=== PATIENT | female | born 1980 | race Caucasian/White ===

== ENCOUNTER 2016-10-22 19:17 | Emergency (ER) | payer OTHER ==
--- NOTE | 2016-10-22 20:13 | DIAGNOSTIC IMAGING REPORT ---
PROCEDURE: XR FOOT 3 VIEWS - LEFT INDICATION: FOOT INJURY TECHNIQUE: Three views. COMPARISON: None. FINDINGS: Comminuted calcaneal fracture with mild displacement of fragments and pes planus. Cutaneous debris overlies the fourth and fifth toes. IMPRESSION: 1. Comminuted left calcaneal fracture.
--- NOTE | 2016-10-22 20:42 | ED ORDER SUMMARY ---
..... Patient: RUTH VOGEL OrderSheet [facility] VisitID: [id number] [place] [address] 36y, F Registration Date/Time: 10/22/2016 ORDER SHEET Weight: 54.4 kg (stated) Allergies: None GENERAL ORDERS: Foot 3V Left Urgent (19:40 10/22/2016 Jessica Melendez) (Ack 19:45 Aissatou ER Title Vehicle Service Attendant) (19:53 Aissatou ER Title Vehicle Service Attendant) CBC w Diff Urgent (20:35 10/22/2016 Jessica Melendez) (Ack 20:39 IJurca ER Tech1) (Collected 20:44 RMarsden R.N.) (20:48 JQuivey R.N.) CMP Urgent (20:35 10/22/2016 Jessica Melendez) (Ack 20:39 NOEMIurca ER Tech1) (Collected 20:44 RMarsden R.N.) (20:48 JQuivey R.N.) UA-Culture if indicated Urgent (20:35 10/22/2016 Jessica Melendez) (Ack 20:39 NOEMIurca ER Tech1) (Collected 20:44 RMarsden R.N.) (20:48 JQuivey R.N.) Urine Urgent (20:35 10/22/2016 Jessica Melendez) (Ack 20:39 NOEMIurca ER Tech1) (Collected 20:44 RMarsden R.N.) (20:48 JQuivey R.N.) Splint (LE) (Left) (Long Leg Posterior) (Fiberglass) (20:41 10/22/2016 Jessica Melendez) (Ack 20:48 JQuivey R.N.) (21:07 RMarsden R.N.) MEDICATION ORDERS: Toradol IM 60 mg (NOW) (19:40 10/22/2016 Jessica Melendez) (Ack 19:48 RMarsden R.N.) (20:01 RMarsden R.N.) Adacel IM 0.5 mL (NOW) (20:02 10/22/2016 RMarsden R.N. per protocol) (20:03 RMarsden R.N.) Nicoderm Topical 21 mg (NOW) (20:58 10/22/2016 Jessica Melendez) (21:00 Cristian R.N.) IV FLUIDS: IV NS : initial bolus none -, then 1000 mL/hr for X1 (NOW) (20:34 10/22/2016 Jessica Melendez) (20:44 Cristian R.N.) Dilaudid IV 1 mg (HIGH ALERT MEDICATION, NOW) (20:57 10/22/2016 Jessica Melendez) (21:04 Cristian R.N.) ORDER SHEET NOTES: [Electronically signed by Hans Pete Dr. (21:27 10/22/2016)] [Electronically signed by Candy Celestin R.N. (05:48 10/23/2016)] [Electronically locked/signed by Candy Celestin R.N. (05:48 10/23/2016)]
--- NOTE | 2016-10-22 20:42 | ED NURSING NOTES ---
Clinical Report - Nurses [facility] [address] [place] [address] 10/22/2016 19:21 Patient: RUTH VOGEL TRIAGE Triage time 19:26. Acuity: LEVEL 4. Chief Complaint: INJURY TO LEFT ANKLE. 19:47 10/22/16. Alert. No acute distress. SEPSIS SCREEN: Sepsis Screen. Negative (no infection suspected/documented). HAKAN COMA SCORE: Hakan Coma Scale: 15- eyes open spontaneously (4); best verbal response- oriented x 4 (5); best motor response- obeys commands (6). --19:47 Candy Celestin R.N. 19:39 10/22/16. BP: 115/64. HR: 89. RR: 14. O2 saturation: 97% on room air. Temp: 98.3 F. Pain level now: 02/07. --19:47 Candy Celestin R.N. Weight: 54.4 kg stated. Height/Length: 65 inches Per Patient. BMI: 20. --19:47 Candy Celestin R.N. Medications None. --19:44 Candy Celestin R.N. Allergies None. --19:44 Candy Celestin R.N. History Arrived by private vehicle. Historian: patient. Primary physician ([facility]). This occurred just prior to arrival. [place] ("[place] the river"). Mechanism of injury: fell while jumping and landed on the ground (off a fence). ( Patient states "I was at the river having a few drinks when I fell off the fence and hurt my ankle."). She has had trouble walking. Treatment HVAC INSTALLATION TECHNICIAN: Splint and took Tylenol. PAST MEDICAL HX: Tetanus status: unknown. Immunizations: up-to-date. Denies current . SOCIAL HX: Heavy tobacco smoker- less than 1 pack per day. Occasional alcohol use. No drug use. NUTRITIONAL RISK ASSESSMENT: The nutritional risk assessment revealed no deficiencies. FUNCTIONAL ASSESSMENT: Functional assessment: no impairments noted. LEARNING NEEDS ASSESSMENT: The learning needs assessment revealed no barriers. FALL RISK ASSESSMENT: Fall risk assessment completed. Risk factors identified include severe pain and patient history of fall. Fall interventions initiated. Side rails up x1. Brakes on Bed in low position. Online Journalist at bedside. Call light in reach of patient. Instructed not to get up without assistance. SKIN INTEGRITY ASSESSMENT: Skin integrity risk assessment completed. No skin integrity risk identified. --19:47 Candy Celestin R.N. PROBLEMS: no known problems. ADDITIONAL SURGERIES: Tubal Ligation. --19:45 Candy Celestin R.N. Interventions ID band on patient. To treatment room. --19:47 Candy Celestin R.N. PHYSICAL ASSESSMENT 19:48 10/22/16. To room via wheelchair. GENERAL / NEURO / PSYCH: Oriented X 4. Alert. Appears in pain. EXTREMITIES: Extremity pulses are within normal limits. Pain with weight bearing. She was unable to bear weight. Left ankle:, posterior ankle: and lateral ankle. SKIN: Skin is warm and dry. ( Patient has skin rash. She states she thinks she has an allergy). --19:48 Candy Celestin R.N. NURSING PROGRESS NOTES 19:48 10/22/16. Two patient identifiers checked. Call light placed in reach. Side rails up x 1. Bed placed in lowest position. Brakes of bed on. --19:48 Candy Celestin R.N. 19:54 Portable x-ray taken. --19:54 Brenton Caputo R.N. 19:53 10/22/2016 Adacel IM 0.5 mL given. (Lot#: [id number], expiration date: 10/04/2018, Certified Nurse Midwife: sanofi pasteur). Given in the right deltoid. Allergies verified and confirmed 5 rights. Vaccine information statement provided to the patient. --20:03 Candy Celestin R.N. 19:56 10/22/2016 Toradol (Ketorolac Tromethamine) IM 60 mg given. Given in the left anterior lateral thigh. Allergies verified and confirmed 5 rights. --20:01 Candy Celestin R.N. 20:34 10/22/2016 Site #1 started via IV in the right antecubital space with an 20g angiocath; one attempt. Blood drawn: rainbow set. Labeled in the presence of the patient and sent to the lab. Saline lock flushed with 5 mL saline. --20:44 Candy Celestin R.N. 20:39 10/22/2016 Started bag #1 1000 mL IV Fluids IV NS (Saline); bolus of 1000 mL over 1 hour(s) via site #1 via IV pump. Allergies verified and confirmed 5 rights. IV patency established. IV site checked: no pain, redness, or swelling. IV flushed thoroughly pre- and post-medication administration. Completed per protocol. --20:44 Candy Celestin R.N. Short leg posterior fiberglass and velcro lower extremity splint applied to left leg by tech. Distal pulses intact, sensation intact and motor within normal limits. --20:56 Kee Whitney, ER Tech1 21:00 10/22/2016 NICODERM Topical Patch/Pad 21 mg. Applied to the right upper arm. Allergies verified and confirmed 5 rights. --21:00 Candy Celestin R.N. 21:04 10/22/2016 Dilaudid (HYDROmorphone HCl PF) IVP 1 mg given over 2 minute(s) via site #1. Allergies verified, confirmed 5 rights and sedative warning given to the patient and patient's crime scene technician. IV patency established. IV site checked: no pain, redness, or swelling. IV flushed thoroughly pre- and post-medication administration. IVP given by RN. --21:04 Candy Celestin R.N. DISPOSITION / DISCHARGE 21:33 10/22/16. Transferred to [facility]. Summary of care provided to transport team and transfer facility via fax. Transported via stretcher by transport team with monitor and IV. Report was given to a nurse in person. Report included patient's care, treatment, medications, reviewed medication reconcilliation, and condition (including any recent changes or anticipated changes). All questions were answered. Report was acknowledged and care was transferred. Patient's personal items include, wallet, jacob bandage; items were placed in belongings bag and transported with the patient. Collection of belongings was witnessed by 1 nurse. --21:33 Candy Celestin R.N. 21:31 06/24/17. BP: 127/74. HR: 84. RR: 15. O2 saturation: 100%. Temp: deferred. Pain level now: 11/07. --21:33 Candy Celestin R.N. Locked/Released at 10/23/2016 5:48 by Candy Celestin R.N.
--- NOTE | 2016-10-22 20:42 | ED CLINICAL REPORT ---
Clinical Report - Physicians/Mid Levels [facility] [address] [place] [address] 10/22/2016 19:21 Patient: RUTH VOGEL Time Seen: 19:28; initial patient contact. Arrived- By private vehicle. Historian- patient. HISTORY OF PRESENT ILLNESS Chief Complaint: Injury to left foot. The injury happened just prior to arrival. [place]urred [place]. Fell 4-5 feet while climbing and landed on the ground. Patient is experiencing moderate pain. Patient denies injury to the head or neck. REVIEW OF SYSTEMS The patient complains of pain on weight bearing. She has had swelling. No tingling, skin laceration, back pain or neck pain. All systems otherwise negative, except as recorded above. PAST HISTORY Negative. ( Tubal Ligation.). Problems: no known problems. Medications: None. Allergies: None. SOCIAL HISTORY Current every day smoker. Occasional alcohol use. No drug use. ADDITIONAL NOTES The nursing notes have been reviewed. PHYSICAL EXAM Vital Signs: 10/22/2016 19:39 BP: 115/64. HR: 89. RR: 14. O2 saturation: 97%. Temp: 98.3 F. Pain level now: 10/10. Have been reviewed as normal. Appearance: Alert. Oriented X3. Appears to be in pain. Skin: Skin warm and dry. Normal skin color. Extremities: Left knee. No tenderness or swelling. No limitation in ROM. Left leg. Left ankle. Neurovascular intact distally. No joint effusion. No erythema, tenderness or swelling. No limitation in ROM. Left foot: mild erythema and moderate tenderness and swelling of the heel. Limited weight bearing secondary to pain. Neurovascular intact distally. No ecchymosis or puncture wound. Lower extremity exam otherwise negative. Extremities otherwise negative. Neuro, Vascular and Tendons: Vascular status intact. Sensation intact. Motor intact. Gait: Gait not tested due to pain. Neuro: Oriented X 3. No motor deficit. No sensory deficit. LABS, X-RAYS, AND EKG Lt Foot X-ray: Left foot fracture: comminuted fracture of the calcaneus. Views: 3 view foot series. Technique: good. The X-rays were independently viewed by me and interpreted contemporaneously by me. Prior films were not available for comparison. Laboratory Tests: UA-Culture if indicated: (WILLEM: 10/22/2016 20:43) ( [employer] 10/22/2016 21:13) Final results Test Result Flag Units (Reference) URINE COLOR YELLOW URINE APPEARANCE CLEAR URINE GLUCOSE NEGATIVE (NEGATIVE) URINE BILIRUBIN NEGATIVE (NEGATIVE) URINE KETONE NEGATIVE (NEGATIVE) URINE SPECIFIC GRAVITY 1.025 (1.010-1.030) URINE PH 5.5 (5.0-8.0) URINE PROTEIN 1+ (NEGATIVE) URINE UROBILINOGEN 0.2 EU/dL (0.2-1.0) URINE NITRITE NEGATIVE (NEGATIVE) URINE BLOOD 1+ (NEGATIVE) URINE LEUK ESTERASE NEGATIVE (NEGATIVE) URINE RBC 3-5 rbc/hpf (0-1) URINE WBC 0-1 wbc/hpf (0-1) URINE EPITHELIAL CELLS 0-1 EPI/hpf (0-5) URINE BACTERIA FEW (1+) (NONE SEEN) URINE COMMENT CULT NOT INDICATED FEW HYALINE CASTSURINE CULTURES ARE SET-UP BASED ON THE FOLLOWING CRITERIA:POSITIVE NITRITEPOSITIVE LEUKOCYTE ESTERASEGREATER THAN 10 WHITE BLOOD CELLSMODERATE (2+) OR GREATER BACTERIA Urine: (WILLEM: 10/22/2016 20:43) ( [facility] 10/22/2016 21:00) Final results Test Result Flag Units (Reference) URINE NEGATIVE CBC w Diff: (WILLEM: 10/22/2016 20:35) ( [employer] 10/22/2016 21:00) Final results Test Result Flag Units (Reference) WHITE BLOOD COUNT 13.7 H K/uL (4.5-11.5) RED BLOOD COUNT 4.30 M/uL (4.00-5.20) HEMOGLOBIN 13.5 gm/dL (12.0-16.0) HEMATOCRIT 41.0 % (36.0-46.0) MEAN CELL VOLUME 95 fL (80-100) MEAN CORPUSCULAR HGB 31 pg (26-34) MEAN CORPUSCULAR HGB CONC 33 g/dL (31-37) RED CELL DISTRIBUTION WIDTH 14.2 % (11.6-14.8) PLATELET COUNT 218 K/uL (150-400) NEUTROPHIL % 80.9 H % (50-75) LYMPH % 14.5 L % (25-40) MONO % 3.8 % (3-14) EOSINOPHIL % 0.5 % (0-4) BASOPHIL % 0.3 % (0-2) CMP: (WILLEM: 10/22/2016 20:35) ( MsgRcvd 10/22/2016 21:19) Final results Test Result Flag Units (Reference) GLUCOSE 102 mg/dL (70-110) BUN 13 mg/dL (7-18) CREATININE 0.8 mg/dL (0.6-1.3) Estimated GFR >60 mL/min Estimated GFR- >60 mL/min Note: Persistent reduction over 3 months in eGFR<60 mL/min/1.73 m2 defines CKD. Patients with eGFR values>=60 mL/min/1.73 m2 may also have CKD if evidence ofpersistent proteinuria. Additional information may be foundat www.kidney.org. SODIUM 142 mmol/L (136-145) POTASSIUM 4.4 mmol/L (3.5-5.1) CHLORIDE 105 mmol/L (98-107) CARBON DIOXIDE 24 mmol/L (21-32) CALCIUM 8.8 mg/dL (8.5-10.1) TOTAL PROTEIN 7.8 g/dL (6.4-8.2) ALBUMIN 4.4 g/dL (3.3-5.0) BILIRUBIN, TOTAL 0.3 mg/dL (0.0-1.0) ALKALINE PHOSPHATASE 63 U/L (46-116) AST (SGOT) 27 U/L (15-37) ALT (SGPT) 29 U/L (12-78) . PROGRESS AND PROCEDURES Course of Care: 21:27 10/22/16. Re-evaluated foot for signs of compartment syndrome, none evident. Discussed case with health care provider (call returned 20:41 Dr. Loera [facility] accepts transfer). Reviewed test results and need for additional work-up. Health care provider will see patient in ED. Disposition: Benefits, risks and alternatives to transfer explained to patient and family. Transferred to [facility]. CLINICAL IMPRESSION Closed comminuted fracture of the body of the left calcaneus. INSTRUCTIONS Follow-up: Screening today revealed the patient's blood pressure to be in the normal range. (Electronically signed by Hans Pete Dr. 10/22/2016 21:28)
--- NOTE | 2016-10-22 20:42 | ED NURSING NOTES ---
Clinical Report - Nurses [facility] [address] [place] [address] 10/22/2016 19:21 Patient: RUTH VOGEL TRIAGE Triage time 19:26. Acuity: LEVEL 4. Chief Complaint: INJURY TO LEFT ANKLE. 19:47 10/22/16. Alert. No acute distress. SEPSIS SCREEN: Sepsis Screen. Negative (no infection suspected/documented). HAKAN COMA SCORE: Hakan Coma Scale: 15- eyes open spontaneously (4); best verbal response- oriented x 4 (5); best motor response- obeys commands (6). --19:47 Candy Celestin R.N. 19:39 10/22/16. BP: 115/64. HR: 89. RR: 14. O2 saturation: 97% on room air. Temp: 98.3 F. Pain level now: 02/07. --19:47 Candy Celestin R.N. Weight: 54.4 kg stated. Height/Length: 65 inches Per Patient. BMI: 20. --19:47 Candy Celestin R.N. Medications None. --19:44 Candy Celestin R.N. Allergies None. --19:44 Candy Celestin R.N. History Arrived by private vehicle. Historian: patient. Primary physician ([facility]). This occurred just prior to arrival. [place] ("[place]"). Mechanism of injury: fell while jumping and landed on the ground (off a fence). ( Patient states "[place] the river [place] when I fell off the fence and hurt my ankle."). She has had trouble walking. Treatment SANDBLAST OPERATOR: Splint and took Tylenol. PAST MEDICAL HX: Tetanus status: unknown. Immunizations: up-to-date. Denies current . SOCIAL HX: Heavy tobacco smoker- less than 1 pack per day. Occasional alcohol use. No drug use. NUTRITIONAL RISK ASSESSMENT: The nutritional risk assessment revealed no deficiencies. FUNCTIONAL ASSESSMENT: Functional assessment: no impairments noted. LEARNING NEEDS ASSESSMENT: The learning needs assessment revealed no barriers. FALL RISK ASSESSMENT: Fall risk assessment completed. Risk factors identified include severe pain and patient history of fall. Fall interventions initiated. Side rails up x1. Brakes on Bed in low position. Assistant Professor Of Criminal Justice at bedside. Call light in reach of patient. Instructed not to get up without assistance. SKIN INTEGRITY ASSESSMENT: Skin integrity risk assessment completed. No skin integrity risk identified. --19:47 Candy Celestin R.N. PROBLEMS: no known problems. ADDITIONAL SURGERIES: Tubal Ligation. --19:45 Candy Celestin R.N. Interventions ID band on patient. To treatment room. --19:47 Candy Celestin R.N. PHYSICAL ASSESSMENT 19:48 10/22/16. To room via wheelchair. GENERAL / NEURO / PSYCH: Oriented X 4. Alert. Appears in pain. EXTREMITIES: Extremity pulses are within normal limits. Pain with weight bearing. She was unable to bear weight. Left ankle:, posterior ankle: and lateral ankle. SKIN: Skin is warm and dry. ( Patient has skin rash. She states she thinks she has an allergy). --19:48 Candy Celestin R.N. NURSING PROGRESS NOTES 19:48 10/22/16. Two patient identifiers checked. Call light placed in reach. Side rails up x 1. Bed placed in lowest position. Brakes of bed on. --19:48 Candy Celestin R.N. 19:54 Portable x-ray taken. --19:54 Brenton Caputo R.N. 19:53 10/22/2016 Adacel IM 0.5 mL given. (Lot#: [id number], expiration date: 10/04/2018, Jewel Sawyer: sanofi pasteur). Given in the right deltoid. Allergies verified and confirmed 5 rights. Vaccine information statement provided to the patient. --20:03 Candy Celestin R.N. 19:56 10/22/2016 Toradol (Ketorolac Tromethamine) IM 60 mg given. Given in the left anterior lateral thigh. Allergies verified and confirmed 5 rights. --20:01 Candy Celestin R.N. 20:34 10/22/2016 Site #1 started via IV in the right antecubital space with an 20g angiocath; one attempt. Blood drawn: rainbow set. Labeled in the presence of the patient and sent to the lab. Saline lock flushed with 5 mL saline. --20:44 Candy Celestin R.N. 20:39 10/22/2016 Started bag #1 1000 mL IV Fluids IV NS (Saline); bolus of 1000 mL over 1 hour(s) via site #1 via IV pump. Allergies verified and confirmed 5 rights. IV patency established. IV site checked: no pain, redness, or swelling. IV flushed thoroughly pre- and post-medication administration. Completed per protocol. --20:44 Candy Celestin R.N. Short leg posterior fiberglass and velcro lower extremity splint applied to left leg by tech. Distal pulses intact, sensation intact and motor within normal limits. --20:56 Kee Whitney, ER Tech1 21:00 10/22/2016 NICODERM Topical Patch/Pad 21 mg. Applied to the right upper arm. Allergies verified and confirmed 5 rights. --21:00 Candy Celestin R.N. 21:04 10/22/2016 Dilaudid (HYDROmorphone HCl PF) IVP 1 mg given over 2 minute(s) via site #1. Allergies verified, confirmed 5 rights and sedative warning given to the patient and patient's port surveyor. IV patency established. IV site checked: no pain, redness, or swelling. IV flushed thoroughly pre- and post-medication administration. IVP given by RN. --21:04 Candy Celestin R.N. DISPOSITION / DISCHARGE 21:33 10/22/16. Transferred to [facility]. Summary of care provided to transport team and transfer facility via fax. Transported via stretcher by transport team with monitor and IV. Report was given to a nurse in person. Report included patient's care, treatment, medications, reviewed medication reconcilliation, and condition (including any recent changes or anticipated changes). All questions were answered. Report was acknowledged and care was transferred. Patient's personal items include, wallet, jacob bandage; items were placed in belongings bag and transported with the patient. Collection of belongings was witnessed by 1 nurse. --21:33 Candy Celestin R.N. 21:31 06/24/17. BP: 127/74. HR: 84. RR: 15. O2 saturation: 100%. Temp: deferred. Pain level now: 11/07. --21:33 Candy Celestin R.N. Locked/Released at 10/23/2016 5:48 by Candy Celestin R.N.
--- NOTE | 2016-10-22 20:42 | ED ORDER SUMMARY ---
..... Patient: RUTH VOGEL OrderSheet [facility] VisitID: [id number] [place] [address] 36y, F Registration Date/Time: 10/22/2016 ORDER SHEET Weight: 54.4 kg (stated) Allergies: None GENERAL ORDERS: Foot 3V Left Urgent (19:40 10/22/2016 Jessica Melendez) (Ack 19:45 Aissatou ER Dietitian Consultant) (19:53 Aissatou ER Dietitian Consultant) CBC w Diff Urgent (20:35 10/22/2016 Jessica Melendez) (Ack 20:39 IJurca ER Tech1) (Collected 20:44 RMarsden R.N.) (20:48 JQuivey R.N.) CMP Urgent (20:35 10/22/2016 Jessica Melendez) (Ack 20:39 NOEMIurca ER Tech1) (Collected 20:44 RMarsden R.N.) (20:48 JQuivey R.N.) UA-Culture if indicated Urgent (20:35 10/22/2016 Jessica Melendez) (Ack 20:39 NOEMIurca ER Tech1) (Collected 20:44 RMarsden R.N.) (20:48 JQuivey R.N.) Urine Urgent (20:35 10/22/2016 Jessica Melendez) (Ack 20:39 NOEMIurca ER Tech1) (Collected 20:44 RMarsden R.N.) (20:48 JQuivey R.N.) Splint (LE) (Left) (Long Leg Posterior) (Fiberglass) (20:41 10/22/2016 Jessica Melendez) (Ack 20:48 JQuivey R.N.) (21:07 RMarsden R.N.) MEDICATION ORDERS: Toradol IM 60 mg (NOW) (19:40 10/22/2016 Jessica Melendez) (Ack 19:48 RMarsden R.N.) (20:01 RMarsden R.N.) Adacel IM 0.5 mL (NOW) (20:02 10/22/2016 RMarsden R.N. per protocol) (20:03 RMarsden R.N.) Nicoderm Topical 21 mg (NOW) (20:58 10/22/2016 Jessica Melendez) (21:00 Cristian R.N.) IV FLUIDS: IV NS : initial bolus none -, then 1000 mL/hr for X1 (NOW) (20:34 10/22/2016 Jessica Melendez) (20:44 Cristian R.N.) Dilaudid IV 1 mg (HIGH ALERT MEDICATION, NOW) (20:57 10/22/2016 Jessica Melendez) (21:04 Cristian R.N.) ORDER SHEET NOTES: [Electronically signed by Hans Pete Dr. (21:27 10/22/2016)] [Electronically signed by Candy Celestin R.N. (05:48 10/23/2016)] [Electronically locked/signed by Candy Celestin R.N. (05:48 10/23/2016)]
--- NOTE | 2016-10-22 20:42 | ED CLINICAL REPORT ---
Clinical Report - Physicians/Mid Levels [facility] [address] [place] [address] 10/22/2016 19:21 Patient: RUTH VOGEL Time Seen: 19:28; initial patient contact. Arrived- By private vehicle. Historian- patient. HISTORY OF PRESENT ILLNESS Chief Complaint: Injury to left foot. The injury happened just prior to arrival. Occurred at a miranda. Fell 4-5 feet while climbing and landed on the ground. Patient is experiencing moderate pain. Patient denies injury to the head or neck. REVIEW OF SYSTEMS The patient complains of pain on weight bearing. She has had swelling. No tingling, skin laceration, back pain or neck pain. All systems otherwise negative, except as recorded above. PAST HISTORY Negative. ( Tubal Ligation.). Problems: no known problems. Medications: None. Allergies: None. SOCIAL HISTORY Current every day smoker. Occasional alcohol use. No drug use. ADDITIONAL NOTES The nursing notes have been reviewed. PHYSICAL EXAM Vital Signs: 10/22/2016 19:39 BP: 115/64. HR: 89. RR: 14. O2 saturation: 97%. Temp: 98.3 F. Pain level now: 10/10. Have been reviewed as normal. Appearance: Alert. Oriented X3. Appears to be in pain. Skin: Skin warm and dry. Normal skin color. Extremities: Left knee. No tenderness or swelling. No limitation in ROM. Left leg. Left ankle. Neurovascular intact distally. No joint effusion. No erythema, tenderness or swelling. No limitation in ROM. Left foot: mild erythema and moderate tenderness and swelling of the heel. Limited weight bearing secondary to pain. Neurovascular intact distally. No ecchymosis or puncture wound. Lower extremity exam otherwise negative. Extremities otherwise negative. Neuro, Vascular and Tendons: Vascular status intact. Sensation intact. Motor intact. Gait: Gait not tested due to pain. Neuro: Oriented X 3. No motor deficit. No sensory deficit. LABS, X-RAYS, AND EKG Lt Foot X-ray: Left foot fracture: comminuted fracture of the calcaneus. Views: 3 view foot series. Technique: good. The X-rays were independently viewed by me and interpreted contemporaneously by me. Prior films were not available for comparison. Laboratory Tests: UA-Culture if indicated: (WILLEM: 10/22/2016 20:43) ( [facility] 10/22/2016 21:13) Final results Test Result Flag Units (Reference) URINE COLOR YELLOW URINE APPEARANCE CLEAR URINE GLUCOSE NEGATIVE (NEGATIVE) URINE BILIRUBIN NEGATIVE (NEGATIVE) URINE KETONE NEGATIVE (NEGATIVE) URINE SPECIFIC GRAVITY 1.025 (1.010-1.030) URINE PH 5.5 (5.0-8.0) URINE PROTEIN 1+ (NEGATIVE) URINE UROBILINOGEN 0.2 EU/dL (0.2-1.0) URINE NITRITE NEGATIVE (NEGATIVE) URINE BLOOD 1+ (NEGATIVE) URINE LEUK ESTERASE NEGATIVE (NEGATIVE) URINE RBC 3-5 rbc/hpf (0-1) URINE WBC 0-1 wbc/hpf (0-1) URINE EPITHELIAL CELLS 0-1 EPI/hpf (0-5) URINE BACTERIA FEW (1+) (NONE SEEN) URINE COMMENT CULT NOT INDICATED FEW HYALINE CASTSURINE CULTURES ARE SET-UP BASED ON THE FOLLOWING CRITERIA:POSITIVE NITRITEPOSITIVE LEUKOCYTE ESTERASEGREATER THAN 10 WHITE BLOOD CELLSMODERATE (2+) OR GREATER BACTERIA Urine: (WILLEM: 10/22/2016 20:43) ( [facility] 10/22/2016 21:00) Final results Test Result Flag Units (Reference) URINE NEGATIVE CBC w Diff: (WILLEM: 10/22/2016 20:35) ( [facility] 10/22/2016 21:00) Final results Test Result Flag Units (Reference) WHITE BLOOD COUNT 13.7 H K/uL (4.5-11.5) RED BLOOD COUNT 4.30 M/uL (4.00-5.20) HEMOGLOBIN 13.5 gm/dL (12.0-16.0) HEMATOCRIT 41.0 % (36.0-46.0) MEAN CELL VOLUME 95 fL (80-100) MEAN CORPUSCULAR HGB 31 pg (26-34) MEAN CORPUSCULAR HGB CONC 33 g/dL (31-37) RED CELL DISTRIBUTION WIDTH 14.2 % (11.6-14.8) PLATELET COUNT 218 K/uL (150-400) NEUTROPHIL % 80.9 H % (50-75) LYMPH % 14.5 L % (25-40) MONO % 3.8 % (3-14) EOSINOPHIL % 0.5 % (0-4) BASOPHIL % 0.3 % (0-2) CMP: (WILLEM: 10/22/2016 20:35) ( [facility]sg[facility]cv[facility] 10/22/2016 21:19) Final results Test Result Flag Units (Reference) GLUCOSE 102 mg/dL (70-110) BUN 13 mg/dL (7-18) CREATININE 0.8 mg/dL (0.6-1.3) Estimated GFR >60 mL/min Estimated GFR- >60 mL/min Note: Persistent reduction over 3 months in eGFR<60 mL/min/1.73 m2 defines CKD. Patients with eGFR values>=60 mL/min/1.73 m2 may also have CKD if evidence ofpersistent proteinuria. Additional information may be foundat www.kidney.org. SODIUM 142 mmol/L (136-145) POTASSIUM 4.4 mmol/L (3.5-5.1) CHLORIDE 105 mmol/L (98-107) CARBON DIOXIDE 24 mmol/L (21-32) CALCIUM 8.8 mg/dL (8.5-10.1) TOTAL PROTEIN 7.8 g/dL (6.4-8.2) ALBUMIN 4.4 g/dL (3.3-5.0) BILIRUBIN, TOTAL 0.3 mg/dL (0.0-1.0) ALKALINE PHOSPHATASE 63 U/L (46-116) AST (SGOT) 27 U/L (15-37) ALT (SGPT) 29 U/L (12-78) . PROGRESS AND PROCEDURES Course of Care: 21:27 10/22/16. Re-evaluated foot for signs of compartment syndrome, none evident. Discussed case with health care provider (call returned 20:41 Dr. Loera [facility] accepts transfer). Reviewed test results and need for additional work-up. Health care provider will see patient in ED. Disposition: Benefits, risks and alternatives to transfer explained to patient and family. Transferred to [facility]. CLINICAL IMPRESSION Closed comminuted fracture of the body of the left calcaneus. INSTRUCTIONS Follow-up: Screening today revealed the patient's blood pressure to be in the normal range. (Electronically signed by Hans Pete Dr. 10/22/2016 21:28)
--- NOTE | 2016-10-23 05:48 | ED MAR SUMMARY ---
..... Medication Administration Record [facility] [address] [place] [address] Patient: RUTH VOGEL Visit ID: [id number] 36y, F Weight: 54.4 kg Height/Length: 65 in BMI: 20 ALLERGIES: None Given 19:53 10/22/2016 Candy Celestin R.N. Medication Administered: ADACEL [IM], Dose: 0.5 mL IM. Medication Ordered: Adacel IM 0.5 mL (NOW). Given 19:56 10/22/2016 Candy Celestin R.N. Medication Administered: TORADOL [IM] (KETOROLAC TROMETHAMINE), Dose: 60 mg IM. Medication Ordered: Toradol IM 60 mg (NOW). Start 20:39 10/22/2016 Candy Celestin R.N. Medication Administered: IV NS (SALINE), Dose: IV Fluids, Bolus: 1000 mL over 1 hour(s), Dispensed: 1000 mL bag, Site: #1 right AC. Medication Ordered: IV NS : initial bolus none -, then 1000 mL/hr for X1 (NOW). Given 21:00 10/22/2016 Candy Celestin R.N. Medication Administered: NICODERM [TOPICAL], Dose: 21 mg Patch/Pad Topical. Medication Ordered: Nicoderm Topical 21 mg (NOW). Given 21:04 10/22/2016 Candy Celestin R.NLele Medication Administered: DILAUDID [IVP] (HYDROMORPHONE HCL PF), Dose: 1 mg IVP over 2 minute(s), Site: #1 right AC. Medication Ordered: Dilaudid IV 1 mg (HIGH ALERT MEDICATION, NOW).
--- NOTE | 2016-10-23 05:48 | ED DISCHARGE INSTRUCTIONS ---
Patient: RUTH VOGEL General Instructions [facility] VisitID: [id number] [address] [place] [address] 36y, F Registration Date/Time: 10/22/2016 Closed comminuted fracture of the body of the left calcaneus. INSTRUCTIONS Follow-up: Screening today revealed the patient's blood pressure to be in the normal range. (Electronically signed by Hans Pete Dr. 10/22/2016 21:28)
--- NOTE | 2016-10-23 05:48 | ED MED RECONCILIATION SUMMARY ---
Patient: RUTH VOGEL Medication Reconciliation Report [facility] VisitID: [id number] [address] [place] [address] 36y, F Registration Date/Time: 10/22/2016 Weight: 54.4 kg Height/Length: 65 in. BMI: 20.0 ALLERGIES: None The patient's Home Medications are listed below: NONE. The source(s) of the original Home Medication information: Not obtained. The following Medications were given to the patient in the Emergency Department: Toradol [IM] IM 60 mg, administered: 10/22/2016 7:56:00 PM Adacel [IM] IM 0.5 mL, administered: 10/22/2016 7:53:00 PM IV NS IV Fluids bolus 1000 mL over 1 hour(s), administered: 10/22/2016 8:39:00 PM NICODERM [TOPICAL] Topical 21 mg, administered: 10/22/2016 9:00:00 PM Dilaudid [IVP] IVP 1 mg, administered: 10/22/2016 9:04:00 PM The following Medications were prescribed to the patient: None.
--- NOTE | 2016-10-23 05:48 | ED MED RECONCILIATION SUMMARY ---
Patient: RUTH VOGEL Medication Reconciliation Report [facility] VisitID: [id number] [address] [place] [address] 36y, F Registration Date/Time: 10/22/2016 Weight: 54.4 kg Height/Length: 65 in. BMI: 20.0 ALLERGIES: None The patient's Home Medications are listed below: NONE. The source(s) of the original Home Medication information: Not obtained. The following Medications were given to the patient in the Emergency Department: Toradol [IM] IM 60 mg, administered: 10/22/2016 7:56:00 PM Adacel [IM] IM 0.5 mL, administered: 10/22/2016 7:53:00 PM IV NS IV Fluids bolus 1000 mL over 1 hour(s), administered: 10/22/2016 8:39:00 PM NICODERM [TOPICAL] Topical 21 mg, administered: 10/22/2016 9:00:00 PM Dilaudid [IVP] IVP 1 mg, administered: 10/22/2016 9:04:00 PM The following Medications were prescribed to the patient: None.
--- NOTE | 2016-10-23 05:48 | ED MAR SUMMARY ---
..... Medication Administration Record [facility] [address] [place] [address] Patient: RUTH VOGEL Visit ID: [id number] 36y, F Weight: 54.4 kg Height/Length: 65 in BMI: 20 ALLERGIES: None Given 19:53 10/22/2016 Candy Celestin R.N. Medication Administered: ADACEL [IM], Dose: 0.5 mL IM. Medication Ordered: Adacel IM 0.5 mL (NOW). Given 19:56 10/22/2016 Candy Celestin R.N. Medication Administered: TORADOL [IM] (KETOROLAC TROMETHAMINE), Dose: 60 mg IM. Medication Ordered: Toradol IM 60 mg (NOW). Start 20:39 10/22/2016 Candy Celestin R.N. Medication Administered: IV NS (SALINE), Dose: IV Fluids, Bolus: 1000 mL over 1 hour(s), Dispensed: 1000 mL bag, Site: #1 right AC. Medication Ordered: IV NS : initial bolus none -, then 1000 mL/hr for X1 (NOW). Given 21:00 10/22/2016 Candy Celestin R.N. Medication Administered: NICODERM [TOPICAL], Dose: 21 mg Patch/Pad Topical. Medication Ordered: Nicoderm Topical 21 mg (NOW). Given 21:04 10/22/2016 Candy Celestin R.NLele Medication Administered: DILAUDID [IVP] (HYDROMORPHONE HCL PF), Dose: 1 mg IVP over 2 minute(s), Site: #1 right AC. Medication Ordered: Dilaudid IV 1 mg (HIGH ALERT MEDICATION, NOW).
--- NOTE | 2016-10-23 05:48 | ED DISCHARGE INSTRUCTIONS ---
Patient: RUTH VOGEL General Instructions [facility] VisitID: [id number] [address] [place] [address] 36y, F Registration Date/Time: 10/22/2016 Closed comminuted fracture of the body of the left calcaneus. INSTRUCTIONS Follow-up: Screening today revealed the patient's blood pressure to be in the normal range. (Electronically signed by Hans Pete Dr. 10/22/2016 21:28)
== END 2016-10-22 21:33 | disposition short-term general hospital (02) ==
LOC: ED SRH 19:17
DX: S92.012A Displaced fracture of body of left calcaneus, initial encounter for closed fracture (principal); W17.89XA Other fall from one level to another, initial encounter; Y93.39 Activity, other involving climbing, rappelling and jumping off; Y99.9 Unspecified external cause status; Y92.828 Other wilderness area as the place of occurrence of the external cause; F17.200 Nicotine dependence, unspecified, uncomplicated

== ENCOUNTER 2016-11-11 09:33 | Day surgery (SDC) | payer OTHER ==
[~2016-11-11] VITALS: Ht 165.1 cm; Wt 58.2 kg
[~2016-11-11 09:33] MED LIST: ENDOCET1 TA3 PO
--- NOTE | 2016-11-11 10:05 | NUR ---
PRE OP INSTRUCTIONS GIVEN AND SAFETY ISSUES DISCUSSED PT HAD QUESTIONS ANSWERED PT CONFIRMED PROCEDURE PT VERIFIED SIGNATURE PT MARKED SITE PT WATCHING TV
[2016-11-11] MEDS ORDERED: ZOFRAN4 MG PO (14:18)
[2016-11-11] MEDS ORDERED: PERCOCET1 TA4 PO (14:18)
--- NOTE | 2016-11-11 14:19 | Provider's Discharge Care Plan ---
Problem, Goal, Plan Problem List 1. Displaced other fracture of tuberosity of left calcaneus, initial encounter for closed fracture Goals: Improve function Instructions: Follow up as directed
--- NOTE | 2016-11-11 14:57 | NUR ---
PT IS AWAKE AND ALERT.PT DENIES NAUSEA.PT STATES THAT HER LEFT FOOT PAIN IS "GETTING BETTER" AFTER DILAUDID 0.5 MG IV X1. LEFT FOOT IS ELEVATED ON TWO PILLOW, ICE BAG PLACED UNDER PT'S LEFT KNEE PER MD ORDER. DRESSING IS CLEAN AND DRY. LEFT FOOT X-RAY DONE IN PACU. PT STATES SHE IS WARM AND COMFORTABLE. VSS. MD TALKED TO PT IN PACU. QUESTIONS ANSWERED.
--- NOTE | 2016-11-11 15:11 | DIAGNOSTIC IMAGING REPORT ---
PROCEDURE: XR FOOT 3 VIEWS - LEFT INDICATION: POST-OP- IN PACU TECHNIQUE: Three views. COMPARISON: Left foot films dated 10/22/2016 FINDINGS: A side plate and six screws are fixing the comminuted calcaneal fracture. Alignment is anatomic. IMPRESSION: 1. Calcaneal fracture repair.
--- NOTE | 2016-11-11 15:27 | NUR ---
PT RETURNED FROM PACU LEFT FOOT ELEVATED ICE BEHIND KNEE SPLINT INTACT PT STATED PAIN IS A 7 AFTER THE DILAUDID IN PACU FOOD GIVEN THEN PAIN MED
[2016-11-11 15:59] VITALS: BP 113/70
--- NOTE | 2016-11-11 16:16 | NUR ---
PT STATED PAIN DECREASED AFTER MED ASKED ABOUT GOING HOME REVIEWED DISCHARGE INSTRUCTIONS VERBAL AND WRITTEN PT AND S/O EXPRESSED UNDERSTANDING PT RECITED BACK WEIGHT BEARING STATUS PT DISCHARGED PER WC ACCOMPANIED BY S/O
== END 2016-11-11 16:18 | disposition home or self-care (01) ==
LOC: SCU SRH 09:33 → OR SRH 09:33
PROVIDERS: Podiatrist
PROC: 0QSM04Z Reposition Left Tarsal with Internal Fixation Device, Open Approach (ICD-10-PCS; principal; 2016-11-11 11:00)
DX: S92.042A Displaced other fracture of tuberosity of left calcaneus, initial encounter for closed fracture (principal); W17.89XA Other fall from one level to another, initial encounter; Z72.0 Tobacco use